=== PATIENT | male | born 1995 | race Two or more races ===

== ENCOUNTER 2018-06-23 20:26 | Emergency (ER) | payer OTHER ==
[~2018-06-23] VITALS: Ht 165.1 cm; Wt 50.8 kg
[2018-06-23] MEDS ORDERED: LAMOTRIGINE 25 MG (20:40)
[2018-06-23] MEDS ORDERED: GABAPENTIN 600 MG (20:40)
[2018-06-23] MEDS ORDERED: METHOCARBAMOL 500 MG (20:40)
[2018-06-23] MEDS ORDERED: diphenhydrAMINE 50 MG/1 ML VIAL ONE (20:55)
[2018-06-23] MEDS ORDERED: predniSONE 10 MG TABLET ONE (20:56)
[2018-06-23] MEDS ORDERED: predniSONE 50 MG TABLET ONE (20:56)
--- NOTE | 2018-06-23 20:58 | NUR ---
PATIENT WAS SEEN BY DR NIETO. HE IS A/A/O X3 IN NO DISTRESS. DENIES BREATHING DIFFICULTY OR THROAT TIGHTNESS OR SWELLING. STATES HE DOES NOT DRIVE. BENADRYL WARNING GIVEN. DC, RX (INCLUDING PRECAUTIONS) AND FOLLOW UP INSTRUCTIONS GIVEN AND EXPLAINED TO PATIENT WHO STATES HE UNDERSTANDS ALL INSTRUCTIONS.
[2018-06-23] MEDS ORDERED: diphenhydrAMINE 50 MG/1 ML VIAL IM ONE (21:00)
[2018-06-23] MEDS ORDERED: predniSONE 20 MG TABLET PO ONE (21:00)
== END 2018-06-23 21:03 | disposition home or self-care (01) ==
LOC: ER 20:29
DX: R21 Rash and other nonspecific skin eruption (principal); L29.9 Pruritus, unspecified; T42.6X5A Adverse effect of other antiepileptic and sedative-hypnotic drugs, initial encounter; F41.9 Anxiety disorder, unspecified; F17.290 Nicotine dependence, other tobacco product, uncomplicated; F15.10 Other stimulant abuse, uncomplicated; Z71.6 Tobacco abuse counseling; Z88.8 Allergy status to other drugs, medicaments and biological substances; Z91.048 Other nonmedicinal substance allergy status; Y92.89 Other specified places as the place of occurrence of the external cause
CPT/HCPCS: 96372; 99283; 99406; J1200; J7512 ×2; A4663